=== PATIENT | female | born 1975 | race Caucasian/White ===

== ENCOUNTER 2022-04-02 11:49 | Outpatient (CLI) | payer MEDICARE, MEDICAID, SELFPAY ==
[2022-04-07 06:10] LABS: FSH 56.6 mIU/mL (***)
[2022-04-09 02:16] LABS: Estradiol, Ultrasensitive 11 pg/mL
== END 2022-04-02 11:50 | disposition home or self-care (01) ==
PROVIDERS: PCP Internal Medicine; Visit Provider Student in an Organized Health Care Education/Training Program
DX: N95.1 Menopausal and female climacteric states (principal)
CPT/HCPCS: 36415; 82670; 83001

== ENCOUNTER 2022-11-23 09:28 | Outpatient (CLI) | payer MEDICARE, MEDICAID, SELFPAY ==
--- NOTE | ~2022-11-23 | MM_ITS ---
EXAMINATION: MM screening jorg ea BI w marycruz HISTORY: Screening mammogram TECHNIQUE: Craniocaudal and mediolateral oblique 3-D tomosynthesis images were obtained and synthetic 2-D images were generated. CAD analysis was submitted and interpreted. COMPARISON: 06/23/2015 bilateral screening mammogram BREAST PARENCHYMAL COMPOSITION: The breasts are almost entirely fatty. FINDINGS: There is no evidence of suspicious mass, calcification, or architectural distortion to sugg est malignancy in either breast. There has been no suspicious interval change. IMPRESSION: 1. No mammographic evidence of malignancy. 2. Recommend routine screening mammography in one year. BI-RADS Category 1: Negative Reviewed, dictated and finalized at location A.
== END 2022-11-23 09:29 | disposition home or self-care (01) ==
PROVIDERS: PCP Emergency Medicine; Visit Provider Student in an Organized Health Care Education/Training Program
DX: Z12.31 Encounter for screening mammogram for malignant neoplasm of breast (principal)
CPT/HCPCS: 77063; 77067

== ENCOUNTER 2023-04-19 14:07 | Outpatient (CLI) | payer MEDICARE, MEDICAID, SELFPAY | END 2023-04-19 14:08 | disposition home or self-care (01) | LOC: ANHAUDASC 14:08 | PROVIDERS: PCP Emergency Medicine; Visit Provider Otolaryngology | DX: H90.41 Sensorineural hearing loss, unilateral, right ear, with unrestricted hearing on the contralateral side (principal) | CPT/HCPCS: 92557; 92567 ==

== ENCOUNTER 2023-04-24 05:56 | Day surgery (SDC) | payer MEDICARE, MEDICAID, SELFPAY ==
[2023-04-09 09:33] VITALS: BMI 39.3
--- NOTE | 2023-04-23 05:41 | PM.HPGS ---
History of Present Illness History of Present Illness Consent: Risks, benefits, and alternatives have been discussed and questions answered. Patient agrees to proceed with procedure. Chief complaint: Otitis Media Narrative: Teresa Hopkins is a 47 year old female with chronic history of otitis media, here for bilateral myringotomy. Review of Systems Review of Systems: All systems reviewed & are unremarkable except as noted in HPI and below PMFSH Past Medical History Medical History Chronic otitis media of both ears Diminished hearing Endometriosis PCOS (polycystic ovarian syndrome) Surgical History Surgical History Delivery by section History of hysterectomy History of lumbar fusion History of nasal surgery History of tubal ligation Family History Family History Other Cerebrovascular accident Diabetes mellitus Family history of allergic disorder Family history of cardiovascular disease Family history of kidney disease Hypertension Social History Social History Social History: Caffeine-tea Smoking packs per day: 0.5 Smoking cigarettes per day: 10.0 Years smoked: 20 Smoking pack-years: 10.00 Smoking status: Current every day smoker Tobacco type: cigarettes Second hand tobacco smoke exposure: No Alcohol intake: current Alcohol use details: Rarely Substance use: current Substance use type: marijuana Lack of Transportation: No Lack of Food: Never True Current Housing: I Have Housing Concerned About Future Housing: No Difficulty Paying Gas/Electric Bills: No Difficulty Paying for Meds: No Currently Unemployed: No Education: High School Diploma/GED Difficulty w/ Childcare or Family Care: No Living arrangements: with family Occupation/Education: unemployed Gender identity (if verbalized by the patient): Female Sexual Orientation (if Verbalized by the Patient): Lesbian, Lubin, or Homosexual Spiritual care concerns: No Meds Home Medications and Allergies Home Medications Medication Instructions Recorded Confirmed Type escitalopram oxalate 10 mg tablet 10 mg PO DAILY #30 tabs 09/18/22 04/09/23 Rx (Lexapro) estradiol 2 mg tablet 2 mg PO DAILY #30 tabs 09/18/22 04/09/23 Rx metformin 500 mg tablet 500 mg PO BID #60 tabs 09/18/22 04/09/23 Rx montelukast 10 mg tablet 10 mg PO DAILY 03/21/23 04/09/23 History (Singulair) semaglutide 1 mg/dose (2 mg/1.5 1 mg subcut WEEKLY 03/21/23 04/09/23 History mL) subcutaneous pen injector (Ozempic) Allergies Allergy/AdvReac Type Severity Reaction Status Date / Time adhesive Allergy Severe SKIN TEARS Verified 04/09/23 09:25 Penicillins Allergy Intermediate Hives Verified 04/09/23 09:25 latex Allergy Mild Rash Verified 04/09/23 09:25 sulfamethoxazole AdvReac Intermediate N&V Verified 04/09/23 09:25 SWELLING trimethoprim AdvReac Intermediate N&V Verified 04/09/23 09:25 SWELLING Assessment and Plan Assessment and plan (1) Chronic otitis media of both ears: Code(s): H66.93 - Otitis media, unspecified, bilateral Status: Acute Plan bilateral myringotomy with tube
--- NOTE | 2023-04-23 13:03 | PM.HPGS ---
History of Present Illness History of Present Illness Consent: Risks, benefits, and alternatives have been discussed and questions answered. Patient agrees to proceed with procedure. Chief complaint: Otitis Media Narrative: Teresa Hopkins is a 47 year old female with recurrent episodes of otitis Review of Systems Review of Systems: All systems reviewed & are unremarkable except as noted in HPI and below PMFSH Past Medical History Medical History Chronic otitis media of both ears Diminished hearing Endometriosis PCOS (polycystic ovarian syndrome) Surgical History Surgical History Delivery by section History of hysterectomy History of lumbar fusion History of nasal surgery History of tubal ligation Family History Family History Other Cerebrovascular accident Diabetes mellitus Family history of allergic disorder Family history of cardiovascular disease Family history of kidney disease Hypertension Social History Social History Social History: Caffeine-tea Smoking packs per day: 0.5 Smoking cigarettes per day: 10.0 Years smoked: 20 Smoking pack-years: 10.00 Smoking status: Current every day smoker Tobacco type: cigarettes Second hand tobacco smoke exposure: No Alcohol intake: current Alcohol use details: Rarely Substance use: current Substance use type: marijuana Lack of Transportation: No Lack of Food: Never True Current Housing: I Have Housing Concerned About Future Housing: No Difficulty Paying Gas/Electric Bills: No Difficulty Paying for Meds: No Currently Unemployed: No Education: High School Diploma/GED Difficulty w/ Childcare or Family Care: No Living arrangements: with family Occupation/Education: unemployed Gender identity (if verbalized by the patient): Female Sexual Orientation (if Verbalized by the Patient): Lesbian, Lubin, or Homosexual Spiritual care concerns: No Meds Home Medications and Allergies Home Medications Medication Instructions Recorded Confirmed Type escitalopram oxalate 10 mg tablet 10 mg PO DAILY #30 tabs 09/18/22 04/24/23 Rx (Lexapro) estradiol 2 mg tablet 2 mg PO DAILY #30 tabs 09/18/22 04/24/23 Rx metformin 500 mg tablet 500 mg PO BID #60 tabs 09/18/22 04/24/23 Rx montelukast 10 mg tablet 10 mg PO DAILY 03/21/23 04/24/23 History (Singulair) semaglutide 1 mg/dose (2 mg/1.5 1 mg subcut WEEKLY 03/21/23 04/24/23 History mL) subcutaneous pen injector (Ozempic) Allergies Allergy/AdvReac Type Severity Reaction Status Date / Time adhesive Allergy Severe SKIN TEARS Verified 04/24/23 06:13 Penicillins Allergy Intermediate Hives Verified 04/24/23 06:13 latex Allergy Mild Rash Verified 04/24/23 06:13 sulfamethoxazole AdvReac Intermediate N&V Verified 04/24/23 06:13 SWELLING trimethoprim AdvReac Intermediate N&V Verified 04/24/23 06:13 SWELLING Assessment and Plan Assessment and plan (1) Chronic otitis media of both ears: Code(s): H66.93 - Otitis media, unspecified, bilateral Status: Acute Plan bilateral myringotomy with insertion of T tubes
--- NOTE | 2023-04-24 06:22 | WPDHPUPDATE1 ---
History and Physical Update Update Date/Time: 04/24/23 06:22 History and Physical has been reviewed, including an updated exam of the patient. There are NO changes in the patient's condition. Risks, benefits, and alternatives have been discussed and questions answered. Patient agrees to proceed with procedure.
[2023-04-24 06:28] LABS: Glucose Point of Care 115 mg/dl (65-105)
[2023-04-24] MEDS: LACTATED RINGERS 1,000 ML 30 ML IV CONT (07:00)
--- NOTE | 2023-04-24 07:59 | W.PM.PROC2 ---
Procedure Note - Detailed Date of Procedure 04/24/23 Pre-op Diagnosis Otitis Media Post-op Diagnosis Same Procedure Performed bilateral myringotomy with insertion of T tubes Surgeon Chuck Mantilla MD Anesthesia General Indications chronic otitis Description of Procedure Patient was prepped and draped in the in the usual fashion after induction of general anesthesia. The [] ear was inspected. Cerumen was removed the ear canal. An anteroinferior incision sit incision was made fluid aspirated and a Sandro bobbin inserted. This procedure was repeated on the other ear with similar findings. Patient awakened returned to recovery in good condition. Estimated Blood Loss 5 Packing No Pathology None sent Complications None Condition Stable Disposition PACU [facility] Billing Surgery - Charge Forward: Surgery Billing
--- NOTE | 2023-04-24 08:01 | WPDANESEPPF ---
Anes - Initial Pre Proc Eval Procedure: Operation Date: 04/24/23 08:00 Proposed Procedures p Bilateral Myringotomy with Insertion of Tubes - Chuck Mantilla MD Date/Time: 04/24/23 08:01 Surgeon: Chuck Mantilla MD Pre Op Diagnosis: Otitis Media Patient Data Age: 47 Gender: F Height: 1.63 m Weight: 102.8 kg Allergies Allergy/AdvReac Type Severity Reaction Status Date / Time adhesive Allergy Severe SKIN TEARS Verified 04/24/23 06:13 Penicillins Allergy Intermediate Hives Verified 04/24/23 06:13 latex Allergy Mild Rash Verified 04/24/23 06:13 sulfamethoxazole AdvReac Intermediate N&V Verified 04/24/23 06:13 SWELLING trimethoprim AdvReac Intermediate N&V Verified 04/24/23 06:13 SWELLING Home Medications Medication Instructions Recorded Confirmed Type escitalopram oxalate 10 mg tablet 10 mg PO DAILY #30 tabs 09/18/22 04/24/23 Rx (Lexapro) estradiol 2 mg tablet 2 mg PO DAILY #30 tabs 09/18/22 04/24/23 Rx metformin 500 mg tablet 500 mg PO BID #60 tabs 09/18/22 04/24/23 Rx montelukast 10 mg tablet 10 mg PO DAILY 03/21/23 04/24/23 History (Singulair) semaglutide 1 mg/dose (2 mg/1.5 1 mg subcut WEEKLY 03/21/23 04/24/23 History mL) subcutaneous pen injector (Ozempic) Laboratory Tests 04/24/23 06:25 POC Capillary Glucose 115 H mg/dl (65-105) Patient hx anesthesia problems: none Family hx anesthesia problems: none Results Review: All pre-operative results and documents have been reviewed as part of the pre-operative evaluation. [facility] Past Medical History Medical History Chronic otitis media of both ears Diminished hearing Endometriosis PCOS (polycystic ovarian syndrome) Surgical History Surgical History Delivery by section History of hysterectomy History of lumbar fusion History of nasal surgery History of tubal ligation Family History Family History Other Cerebrovascular accident Diabetes mellitus Family history of allergic disorder Family history of cardiovascular disease Family history of kidney disease Hypertension Social History Social History Social History: Caffeine-tea Smoking packs per day: 0.5 Smoking cigarettes per day: 10.0 Years smoked: 20 Smoking pack-years: 10.00 Smoking status: Current every day smoker Tobacco type: cigarettes Second hand tobacco smoke exposure: No Alcohol intake: current Alcohol use details: Rarely Substance use: current Substance use type: marijuana Lack of Transportation: No Lack of Food: Never True Current Housing: I Have Housing Concerned About Future Housing: No Difficulty Paying Gas/Electric Bills: No Difficulty Paying for Meds: No Currently Unemployed: No Education: High School Diploma/GED Difficulty w/ Childcare or Family Care: No Living arrangements: with family Occupation/Education: unemployed Gender identity (if verbalized by the patient): Female Sexual Orientation (if Verbalized by the Patient): Lesbian, Lubin, or Homosexual Spiritual care concerns: No Anes - Eval Final PreProcedure Day of Procedure 04/24/23 08:01 Patient weight: obese Heart: regular rate and rhythm Lungs: decreased breath sounds Airway: Mallampati scale class II Neurological: alert and oriented Last oral intake: >/= 8 hours ASA classification: III Emergent: no Anesthetic plan: proceed Anesthesia type and monitoring: general GIVS and standard monitoring Results Review: All pre-operative results and documents have been reviewed as part of the pre-operative evaluation. Informed Consent: The patient's anesthetic plan and its attendant risks and benefits were discussed with the patient/family/POA. Questions were solicite
[2023-04-24] MEDS: CIPROFLOXACIN HCL 0.3% OP SOLN 2.5 ML BTL 4 DROP EACH EAR (08:12)
[2023-04-24 08:19] VITALS: BP 105/67; PULSE 75; RESP 20; TEMP 36.1; O2SAT 96
[2023-04-24 08:25] VITALS: BP 117/67; PULSE 69; RESP 22; TEMP 36.2; O2SAT 99
[2023-04-24 08:35] VITALS: BP 123/74; PULSE 73; RESP 20; O2SAT 97
[2023-04-24 08:40] VITALS: BP 125/76; PULSE 82; RESP 18; O2SAT 98
[2023-04-24] MEDS: oxyCODONE HCL (*CRX) 5 MG TAB IR PO (08:45)
[2023-04-24 08:50] VITALS: BP 124/80; PULSE 72; RESP 16; O2SAT 96
[2023-04-24 09:00] VITALS: BP 124/78; PULSE 72; RESP 16; O2SAT 96
--- NOTE | 2023-04-24 09:05 | WPDANESPN ---
Anes - Prog Note Post-Op Date/Time: 04/24/23 09:05 Cardiovascular status: normal Respiratory status: normal Airway patency: baseline Mental status: baseline Post-Op hydration status: normal Vital Signs: Last Vital Signs Temp 36.2 C L 04/24/23 08:25 Pulse 72 04/24/23 09:00 Resp 16 04/24/23 09:00 BP 124/78 04/24/23 09:00 Pulse Ox 96 04/24/23 09:00 O2 Del Method Room Air 04/24/23 09:00 O2 Flow Rate 8 04/24/23 08:25 Pain Score (VAS): 0 I/O: Intake & Output 04/23/23 04/24/23 04/24/23 23:59 07:59 15:59 Intake Total 900 Balance 900 04/24/23 06:25 POC Capillary Glucose 115 H Patient Feedback: Patient satisfied with anesthetic care.
== END 2023-04-24 09:08 | disposition home or self-care (01) ==
PROVIDERS: PCP Emergency Medicine; Visit Provider Otolaryngology
PROC: (CPT 69436; principal; 2023-04-24 08:00)
DX: H65.23 Chronic serous otitis media, bilateral (principal)
CPT/HCPCS: 69436 ×2; J7342

== ENCOUNTER 2023-07-10 10:47 | Outpatient (CLI) | payer MEDICARE, MEDICAID, SELFPAY | END 2023-07-10 10:48 | disposition home or self-care (01) | LOC: ANHAUDASC 10:48 | PROVIDERS: PCP Emergency Medicine; Visit Provider Otolaryngology | DX: H90.6 Mixed conductive and sensorineural hearing loss, bilateral (principal); H93.11 Tinnitus, right ear; T85.528A Displacement of other gastrointestinal prosthetic devices, implants and grafts, initial encounter | CPT/HCPCS: 92557; 92567 ==

== ENCOUNTER 2024-04-01 10:19 | Outpatient (CLI) | payer MEDICARE, MEDICAID, SELFPAY ==
--- NOTE | ~2024-04-01 | MR_ITS ---
EXAMINATION: MR brain/brain stem wo con DATE: 04/01/2024 11:06 INDICATION: Seizure like activity with unspecified convulsions. TECHNIQUE: Magnetic resonance imaging (MRI) of the brain and brainstem was performed without intraven ous contrast. Sequences included sagittal and axial T1-weighted SE, axial diffusion-weighted FS SE, 3 -D axial SWAN, axial T2-weighted FLAIR Propeller, axial T2-weighted Propeller, coronal T2-weighted FL AIR, and coronal T1-weighted 3D FSPGR. Apparent diffusion coefficient (ADC) maps were created. COMPARISON: None. FINDINGS: There are no areas of restricted diffusion to suggest acute infarction. No intracranial hemorrhage or abnormal intracranial mass lesion. There are no intraparenchymal signal abnormalities seen on the ot her pulse sequences. The ventricles are symmetric and normal in size. Hippocampi appear normal and sy mmetric. No evident esteves matter heterotopias or other neuronal migrational abnormalities identified. There are no abnormal extra-axial fluid collections. Flow voids are seen in the cerebral arteries on the T2-weighted sequences consistent with their expected patency. Visualized orbits and soft tissues are unremarkable. There are no areas of abnormal enhancement on the post contrast images. IMPRESSION: 1. Normal brain MR. Reviewed, dictated and finalized at location A. IMPRESSION: 1. Normal brain MR.
== END 2024-04-01 10:20 | disposition home or self-care (01) ==
LOC: ANHIMG 10:21
PROVIDERS: PCP Emergency Medicine; Visit Provider Psychiatry & Neurology Neurology
DX: R56.9 Unspecified convulsions (principal)
CPT/HCPCS: 70551

== ENCOUNTER 2024-05-14 11:14 | Outpatient (CLI) | payer MEDICAID, MEDICARE, SELFPAY ==
--- NOTE | 2024-05-14 12:55 | WPDNEUROLOGY ---
Neurology EEG Report General Information Date of Study: 05/14/24 TEST Electroencephalogram DIAGNOSIS unspecified convulsion CONDITION OF RECORDING neurodiagnostic lab EEG NUMBER [id number] CLINICAL HISTORY history of seizures for few years usually when the patient stressed out EEG DESCRIPTION during wakefulness the background activity consists of posterior done of her in the 10 has shown amplitude of 20-40 microvolts which appears more deformed. Anteriorly low amplitude mixed frequency activity was seen. There is a mild anteroposterior gradient. Hyperventilation was not performed. Patient did not progress to stage 2 sleep. Forty switch her performed which no significant abnormal background changes were seen. IMPRESSION This is a normal EEG obtained during awake state.
== END 2024-05-14 11:15 | disposition home or self-care (01) ==
LOC: ANHNEURO 11:15
PROVIDERS: PCP Emergency Medicine; Visit Provider Student in an Organized Health Care Education/Training Program
DX: R56.9 Unspecified convulsions (principal)
CPT/HCPCS: 95816

== ENCOUNTER 2024-09-29 09:32 | Outpatient (CLI) | payer MEDICARE, MEDICAID, SELFPAY ==
--- NOTE | ~2024-09-29 | CT_ITS ---
CT ANGIOGRAM NECK AND HEAD History: Vertebrobasilar artery syndrome. Technique: Axial noncontrast imaging of the brain was performed. Serial spiral axial images through t he head and neck were then obtained during arterial phase IV injection of 100 cc of Omnipaque 350. 3- D postprocessing and MIP images were then reconstructed on the remote workstation. Dose reduction kate hnique was used on this scan by utilizing automated exposure control and iterative reconstruction kate hnique. The dose-length product (DLP) was 1663.72 mGy-cm. CTA neck findings: Bilateral vertebral arteries are patent. Right vertebral artery is relatively hyp oplastic compared to the left, and terminates as the right PICA, normal variant. Bilateral common car otid, internal carotid, and external carotid arteries are patent. No large vessel occlusion or stenos is. No aneurysm. The proximal right internal carotid artery demonstrates 0% stenosis relative to the normal distal artery lumen diameter. The proximal left internal carotid artery demonstrates 0% stenos is relative to the normal distal artery lumen diameter. CTA head findings: Distal vertebral arteries, basilar artery, and posterior cerebral arteries are pat ent. Basilar artery is small in caliber diffusely hypoplastic, with posterior circulation predominant ly fed via posterior communicating arteries. Distal internal carotid arteries, middle cerebral arteri es, anterior cerebral arteries are patent. No other large vessel occlusion or stenosis. No aneurysm. Axial noncontrast imaging of the right is unremarkable. No acute infarct, intracranial hemorrhage, or mass lesion seen. No mass effect or midline shift. Penaloza-white differentiation intact. The ventricles and subarachnoid spaces are unremarkable. Paranasal sinuses and mastoid air cells are are clear. Tremaine varium intact. 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 No other significant findings. Reviewed, dictated and finalized at location M. 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 No other significant findings.
[2024-09-29 10:00] LABS: Estimated Glomerular Filt Rate > 60
--- OUTSIDE RECORDS SUMMARY | 2024-09-29 10:35 | XMS_ITS | Clinical Summary ---
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 Name Role Phone Pradeep Osman MD Primary Care Provider [phone] Allergies Active Allergy Reactions Criticality Noted Date Comments Sulfamethoxazole-Trimethoprim Unknown 2018 Latex Rash 06/01/2019 Reaction: RASH Other-Environmental Allergen (Not Found In Search) Rash 06/01/2019 Adhesive tape Penicillins Rash 06/01/2019 Reaction: RASH Medications LINZESS 290 MCG Capsule TK 1 C PO QD 9 Active Norethindrone Acetate 5 MG Tablet TK 1 T PO QD 9 Active oxyCODONE-aceta minophen (PERCOCET) 5-325 MG Tablet TK 1 T PO Q 6 H PRF BREAKTHROUGH PAIN 9 Active naproxen (NAPROSYN) 500 MG Tablet TK 1 T PO BID WF 9 Active metFORMIN (GLUCOPHAGE) 500 MG Tablet TK 1 T PO BID 0 Active Active Problems No known active problems Family History Medical History Relation Name Comments No Known Problems Father No Known Problems Mother Relation Name Status Comments Father Alive Mother Alive Social History Tobacco Use Types Packs/Day Years Used Date Smoking Tobacco: Every Day Smokeless Tobacco: Never Tobacco Cessation:Ready to Q uit: No Alcohol Use Standard Drinks/Week Comments Not Currently 0 (1 standard drink = 0.6 oz pur e alcohol) Sexually Active Control Partners Comments Yes Male Comments Unknown Sex and Gender Information Value Date Recorded Sex Assigned at Not on file Legal Sex 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 Gender Identity Not on file Sexual Orientation Not on file Last Filed Vital Signs Vital Sign Reading Time Taken Comments Blood Pressure 130/92 06/24/2019 9:11 AM CANVAS REPAIRER Pulse 79 06/24/2019 9:11 AM CANVAS REPAIRER Temperature 36.8 C (98.3 F) 06/24/2019 9:11 AM CANVAS REPAIRER Respiratory Rate 20 06/24/2019 9:11 AM CANVAS REPAIRER Oxygen Saturation 98% 06/24/2019 9:11 AM CANVAS REPAIRER Inhaled Oxygen Concentration - - Weight 119.3 kg (263 lb) 06/24/2019 9:11 AM CANVAS REPAIRER Height 162.6 cm (5' 4 ) 06/24/2019 9:11 AM CANVAS REPAIRER Body Mass Index 45.14 06/24/2019 9:11 AM CANVAS REPAIRER Plan of Treatment Health Maintenance Due Date Last Done Comments Hepatitis C Virus (HCV) Screening 1977 TdaP Immunization 1977 Hepatitis B Immunization (1 of 3 - 19+ 3-dose series) 1996 Colonoscopy 2022 Colorectal Cancer Screening 2022 Influenza Immunization (#1) 2024 SARS-COV-2 Immunization ( - 2023- season) 2024 Respiratory Syncytial Virus (RSV) Immunization (Adult) (1 - 1-dose 75+ series) 2052 Meningococcal Immunization (ACWY) Aged Out No longer eligible based on patient's age to complete this topic Pneumococcal Immunization Combined Aged Out No longer eligible based on patient's age to complete this topic Rotavirus Immunization Aged Out No lo nger eligible based on patient's age to complete this topic Insurance MEDICARE [place]ICAID [place] Care Teams Fire Hydrant Operator Relationship Specialty Start Date End Date Pradeep Osman MD [address] [place] [address] PCP - General Geriatric Medicine 05/10/19
== END 2024-09-29 09:33 | disposition home or self-care (01) ==
LOC: ANHIMG 09:34
PROVIDERS: PCP Family Medicine; Visit Provider Psychiatry & Neurology Neurology
DX: G45.0 Vertebro-basilar artery syndrome (principal); G43.909 Migraine, unspecified, not intractable, without status migrainosus; R56.9 Unspecified convulsions
CPT/HCPCS: 70496; 70498; Q9967

== ENCOUNTER 2025-05-04 11:50 | Outpatient (CLI) | payer MEDICARE, MEDICAID, SELFPAY ==
[2025-05-04 13:00] LABS: Cholesterol 147 mg/dL (0-200); HDL Direct 55 mg/dL; Triglycerides 77 mg/dL (<150)
--- OUTSIDE RECORDS SUMMARY | 2025-05-04 13:33 | XMS_ITS | Clinical Summary ---
Author Organization [facility] Address [address] [place] [id number] Care Team Providers Care Electric Clock Mechanic Name Role Phone Debbie Chávez SILK FOLDER Primary Care Provider [phone] Encounters Date Type Department Care Team Description 03/24/2025 10:11 AM CDT - 03/24/2025 11:59 PM CDT Hospital Encounter [facility] [address] [address] Juan Alberto Copeland MD Discharge Disposition: Home or Self Care (Routine Discharge) 03/24/2025 Travel from Last 3 Months Social History Tobacco Use Types Packs/Day Years Used Date Smoking Tobacco: Never Assessed Comments Unknown Sex and Gender Information Value Date Recorded Sex Assigned at Female 03/24/2025 9:58 AM CDT Legal Sex Female 4:17 PM CDT Gender Identity Not on file Sexual Orientation Not on file Plan of Treatment Health Maintenance Due Date Last Done Comments Cervical Cancer Screening Pa p Smear (Age 30 to 64) Every 3 Years 1977 Colorectal Cancer Screening Colonoscopy (10 Years) 1977 Annual Physical 1980 Hepatitis C 12/31/1995 DTaP, Tdap and Td Vaccines ( 1 - Tdap) 1996 Hepatitis B Vaccines (1 of 3 - 19+ 3-dose series) 1996 Cervical Cancer Screening Pa p with HPV Testing (Age 30 to 64) Every 5 Years 12/31/2007 Cervical Cancer Screening with HPV 12/31/2007 Mammogram Screening 2017 COVID-19 Vaccine ( - 2024-2 6 season) 2025 Influenza Adult (#1) 2025 Hepatitis A Vaccines Aged Out No long er eligible based on patient's age to complete this topic Meningococcal B Vaccine Aged Out No l onger eligible based on patient's age to complete this topic Meningococcal Vaccine Aged Out No rebeca isai eligible based on patient's age to complete this topic Pneumococcal Vaccine: Pediat rics (0 to 5 Years) and At-Risk Patients (6 to 49 Years) Aged Out No longer eligible b ased on patient's age to complete this topic RSV Immunizations Under 20 Months Aged Out No longer eligible based on patient's age to complete this topic Procedures Procedure Name Priority Date/Time Associated Diagnosis Comments CT SINUS WO CON Routine 03/24/2025 10:38 AM CDT Acute recurrent maxillary sinusitis Polyp of vocal cord and larynx Gastro-esophageal reflux disease without esophagitis from Last 3 Months Results * CT SINUS WO CON (03/24/2025 10:38 AM CDT) Anatomical Region Laterality Modality Facial Computed Tomogra phy 04/01/2025 10:1 7 AM CDT Impressions 04/01/2025 10:20 AM CDT IMPRESSION: Well aerated paranasal sinuses and their drainage pathways. Ordered By: JUAN ALBERTO COPELAND Interpreted By: Richard Marshall MD, 04/01/2025 10:17 AM Narrative 04/01/2025 10:20 AM CDT [address] [address] Examination: CT SINUS WO CON, 03/24/2025 10:27 AM. Technique: Computed tomographic images of the paranasal sinuses were obtained without intravenous contrast. Additional coronal and sagittal reformatted images were generated at a separate workstation. A dose lowering technique was used for this procedure, which may include, but is not limited to, dose reduction technique, automated exposure control, the use of iterative reconstruction, and ALARA (As Low As Reasonably Achievable) / Image Gently techniques. Clinical history: Acute recurrent maxillary sinusitis, Polyp of vocal cord and larynx, Gastro-esophageal reflux disease without esophagitisAcute recurrent maxillary sinusitis Comparison: None available Findings: Frontal sinuses are patent. Frontal sinus drainage pathways are patent. Ethmoidal sinuses and their drainage pathways are patent. Maxillary sinuses and their drainage pathways are patent. Sphenoid sinuses and sphenoid ostia are patent. No significant focal erosion or new bone formation. Mild to moderate leftward deviation of the nasal septum. Orbital contents appear normal. Partially visualized intracranial compartment appears normal. Procedure Note Richard Marshall MD - 04/01/2025 [facility] [address] [place], [place] [address] Examination: CT SINUS WO CON, 03/24/2025 10:27 AM. Technique: Computed tomographic images of the paranasal sinuses wereobtained without intravenous contrast. Additional coronal and sagittalreformatted images were generated at a separate workstation. A doselowering technique was used for this procedure, which may include, but isnot limited to, dose reduction technique, automated exposure control, theuse of iterative reconstruction, and ALARA (As Low As ReasonablyAchievable) / Image Gently techniques. Clinical history: Acute recurrent maxillary sinusitis, Polyp of vocal cordand larynx, Gastro-esophageal reflux disease without esophagitisAcuterecurrent maxillary sinusitis Comparison: None available Findings: Frontal sinuses are patent. Frontal sinus drainage pathways are patent.Ethmoidal sinuses and their drainage pathways are patent. Maxillarysinuses and their drainage pathways are patent. Sphenoid sinuses andsphenoid ostia are patent. No significant focal erosion or new boneformation. Mild to moderate leftward deviation of the nasal septum.Orbital contents appear normal. Partially visualized intracranialcompartment appears normal. IMPRESSION: Well aerated paranasal sinuses and their drainage pathways. Ordered By: JUAN ALBERTO COPELAND Interpreted By: Richard Marshall MD, 04/01/2025 10:17 AM Juan Alberto Copeland MD CT Final Result from Last 3 Months Insurance [facility]ID [facility] [address] MEDICARE Care Teams Electric Clock Mechanic Relationship Specialty Start Date End Date Debbie Chávez NP [address] [address] PCP - General NURSE PRACTITIONER 03/24/25
--- OUTSIDE RECORDS SUMMARY | 2025-05-04 13:33 | XMS_ITS | Clinical Summary ---
Author Organization [facility] Address [address] [place] [address] Phone Care Team Providers Care Demand Planning Analyst Name Role Phone Pradeep Osman MD Primary Care Provider [phone] Allergies Active Allergy Reactions Criticality Noted Date [...] on file Legal Sex Female 3:32 PM MONOLOGIST Gender Identity Not on file Sexual Orientation Not on file Last Filed Vital Signs Vital Sign Reading Time Taken Comments Blood Pressure 130/92 06/24/2019 9:11 AM MONOLOGIST Pulse 79 06/24/2019 9:11 AM MONOLOGIST Temperature 36.8 C (98.3 F) 06/24/2019 9:11 AM MONOLOGIST Respiratory Rate 20 06/24/2019 9:11 AM MONOLOGIST Oxygen Saturation 98% 06/24/2019 9:11 AM MONOLOGIST Inhaled Oxygen Concentration - - Weight 119.3 kg (263 lb) 06/24/2019 9:11 AM MONOLOGIST Height 162.6 cm (5' 4) 06/24/2019 9:11 AM MONOLOGIST Body Mass Index 45.14 06/24/2019 9:11 AM MONOLOGIST Plan of Treatment Health Maintenance Due Date Last Done Comments Hepatitis C Virus (HCV) Screening 1977 TdaP Immunization 1977 Hepatitis B Immunization (1 of 3 - 19+ 3-dose series) 1996 Pap Smear 1998 Cervical Cancer Screening (CCS) 12/31/2007 HPV/Cotest 12/31/2007 Medicare Initial AWV [id number] 09/08/2013 Human Papillomavirus (HPV) Immunization (2 - 3-dose SCDM series) 09/19/2018 08/22/2018 Cologuard 2022 Colonoscopy 2022 Colorectal Cancer Screening 2022 Immunochemical Fecal Occult Blood 2022 Influenza Immunization (#1) 2025 SARS-COV-2 Immunization ( - 2024- season) 2025 Respiratory Syncytial Virus (RSV) Immunization (Adult) (1 [...] topic Insurance MEDICARE MEDICAID [place] Care Teams Demand Planning Analyst Relationship Specialty Start Date End Date Pradeep Osman MD [address] [place] [address] PCP - General Geriatric Medicine 05/10/19
== END 2025-05-04 11:51 | disposition home or self-care (01) ==
LOC: ANHLAB 11:52
PROVIDERS: PCP Nurse Practitioner Family; Visit Provider Psychiatry & Neurology Neurology
DX: G45.0 Vertebro-basilar artery syndrome (principal); G43.909 Migraine, unspecified, not intractable, without status migrainosus; R56.9 Unspecified convulsions
CPT/HCPCS: 36415; 80061